=== PATIENT | male | born 1950 | race American Indian/Alaskan Native ===

== ENCOUNTER 2018-06-26 10:36 | Emergency (ER) | payer MEDICARE ==
[2018-06-26] MEDS ORDERED: DILAUDID IV ONE (12:32)
[2018-06-26] MEDS ORDERED: NACL 0.9% 1000 ML 1,000 ML IV ONE (12:32)
[2018-06-26] MEDS ORDERED: ZOFRAN IV ONE (12:32)
--- NOTE | 2018-06-26 12:38 | Emergency Department Report ---
ED Abdominal Pain HPI - General Chief Complaint: Urogenital-Male Stated Complaint: BACK PAIN/PROSTATE/ HARD TO USE RESTROOM Time Seen by Provider: 06/26/18 12:29 Source: patient Mode of arrival: Ambulatory Limitations: No Limitations - History of Present Illness Initial Comments: Patient is 67 years old male with history of hypertension and a recent diagnosis of benign prostatic hypertrophy. Patient presented to the ER complaining of bilateral flank pain, diffuse abdominal pain, nausea and vomiting. Patient stated that symptoms started last night. Patient denied any fever but admitted chills. Patient denied any chest pain or shortness of breath. MD Complaint: abdominal pain, flank pain -: Last night Location: diffuse, suprapubic, L flank Radiation: none Severity scale (0 -10): 6 Quality: sharp Consistency: constant - Related Data Allergies Allergy/AdvReac Type Severity Reaction Status Date / Time No Known Allergies Allergy Unverified 06/26/18 10:42 ED Review of Systems ROS: Stated complaint: BACK PAIN/PROSTATE/ HARD TO USE RESTROOM Other details as noted in HPI Comment: All other systems reviewed and negative Constitutional: chills. denies: fever Respiratory: denies: cough, orthopnea, shortness of breath, SOB with exertion, SOB at rest, wheezing Cardiovascular: denies: chest pain, palpitations, dyspnea on exertion Gastrointestinal: abdominal pain, nausea, vomiting. denies: diarrhea, constipation, hematemesis, melena, hematochezia Genitourinary: urgency, dysuria, frequency. denies: hematuria, discharge, testi cular pain, testicular mass Musculoskeletal: back pain Neurological: denies: headache, weakness, numbness, paresthesias, confusion ED Past Medical Hx - Past Medical History Previous Medical History?: Yes Hx Hypertension: Yes - Surgical History Past Surgical History?: No - Social History Smoking Status: Never Smoker Substance Use Type: None ED Physical Exam - General Limitations: No Limitations General appearance: alert, in no apparent distress - Head Head exam: Present: atraumatic, normocephalic, normal inspection - Eye Eye exam: Present: normal appearance, PERRL - ENT ENT exam: Present: mucous membranes dry - Neck Neck exam: Present: normal inspection, full ROM. Absent: tenderness, meningismus, lymphadenopathy, thyromegaly - Respiratory Respiratory exam: Present: normal lung sounds bilaterally - Cardiovascular Cardiovascular Exam: Present: regular rate, normal rhythm, normal heart sounds - GI/Abdominal GI/Abdominal exam: Present: soft, tenderness (diffuse), normal bowel sounds. Absent: distended, guarding, rebound, rigid - Extremities Exam Extremities exam: Present: normal inspection - Back Exam Back exam: Present: normal inspection, full ROM, CVA tenderness (R), CVA tenderness (L). Absent: tenderness, muscle spasm, paraspinal tenderness, vertebral tenderness - Neurological Exam Neurological exam: Present: alert, oriented X3, CN II-XII intact, normal gait, reflexes normal - Skin Skin exam: Present: warm, intact, normal color ED Course Vital Signs 06/26/18 06/26/18 06/26/18 11:02 13:05 13:09 Temperature 97.8 F Pulse Rate 76 Respiratory 16 16 16 Rate Blood Pressure 179/87 [Left] O2 Sat by Pulse 97 Oximetry ED Medical Decision Making - Lab Data Result diagrams: 06/26/18 12:50 06/26/18 14:44 - Radiology Data Radiology results: report reviewed Referring Physician: ERICA SAMAYOA Patient Name: TAYLOR WALLS Date of : 1950 Sex: Male Report Date: 2018-06-26 Report Status: [place] [address] Cat Scan Report Signed Patient: TAYLOR WALLS MR#: [id number] : 1950 Acct:[id number] Age/Sex: 67 / M ADM Date: 06/26/18 Loc: ED Attending Dr: Ordering Physician: ERICA SAMAYOA Date of Service: 06/26/18 Procedure(s): CT abdomen pelvis w con Accession Number(s): [id number] cc: ERICA SAMAYOA PROCEDURE: CT abdomen and pelvis with contrast. TECHNIQUE: Computerized axial tomography of the abdomen and pelvis was performed after the IV injection of iodinated nonionic contrast. CT DOSE LENGTH PRODUCT: 3931.87 mGycm HISTORY: Abdominal pain. COMPARISONS: None. FINDINGS: The lung bases are clear. There are no pleural effusions. The heart size is normal. The liver, pancreas and spleen appear normal. The gallbladder is present. There is no biliary dilatation. The adrenal glands are not enlarged. Both kidneys appear normal in size and configuration. The abdominal aorta has a normal caliber. There is no retroperitoneal adenopathy. The unopacified gastrointestinal tract is unremarkable. A normal appendix is visible. The bladder is unremarkable. The prostate is severely enlarged. This elevates the base of the bladder. I cannot exclude invasion of the bladder. Referral to a urologist is recommended. There is a small left inguinal canal hernia containing fat. The regional skeleton appears intact. IMPRESSION: Severe enlargement of the prostate. Indeterminant appearance of the bladder base. Referral to a urologist recommended. This document is electronically signed by Kera Faith MD., June 26 2018 05:26:21 PM ET Transcribed By: MRM Dictated By: KERA FAITH MD Electronically Authenticated By: KERA FAITH MD Signed Date/Time: 06/26/18 1728 DD/ 1639 TD/TT: 06/26/18 1643 - Medical Decision Making Patient is 67 years old male with history of hypertension and a recent diagnosis of benign prostatic hypertrophy. Patient presented to the ER complaining of bilateral flank pain, diffuse abdominal pain, nausea and vomiting. Patient stated that symptoms started last night. Patient denied any fever but admitted chills. Patient denied any chest pain or shortness of breath. Patient stated that he is feeling much better. Abdominal pain completely resolved. I discuss with the patient and his family do CT abdomen and pelvis results and the recommendation to follow-up with a urologist in the next 2-3 days. Family stated that patient already have an appointment tomorrow. I will also advise the patient to return to the ER if his symptoms are not improved. Critical care attestation.: If time is entered above; I have spent that time in minutes in the direct care of this critically ill patient, excluding procedure time. ED Disposition Clinical Impression: Abdominal pain, Enlarged prostate Disposition: - TO HOME OR SELFCARE Is pt being admited?: No Condition: Stable Instructions: Abdominal Pain (ED)
[2018-06-26 13:01] LABS: Bilirubin,Urine NEG (Negative); Blood,Urine NEG (Negative); Color,Urine Yellow (Yellow); Hyaline Casts,Urine 1 /LPF; Mucus,Urine FEW /HPF; Protein,Urine <15 mg/dL mg/dL (Negative); Urobilinogen,Urine < 2.0 mg/dL (<2.0); WBC,Urine < 1.0 /HPF (0.0-6.0)
[2018-06-26 13:14] LABS: Hematocrit 36.4 % (35.5-45.6); Hemoglobin 12.1 gm/dl (11.8-15.2); Mean Corpuscular Volume 94 fl (84-94); Red Blood Count 3.89 M/mm3 (3.65-5.03)
[2018-06-26 13:15] LABS: Basophils # (Auto) 0.1 K/mm3 (0.0-0.1); Basophils % (Auto) 1.3 % (0.0-1.8); Eosinophils % (Auto) 0.1 % (0.0-4.3); Lymphocytes # (Auto) 0.7 K/mm3 (1.2-5.4); Lymphocytes % (Auto) 6.9 % (13.4-35.0); Mean Corpuscular HGB Conc 33 % (32-34); Monocytes # (Auto) 0.5 K/mm3 (0.0-0.8); Monocytes % (Auto) 4.7 % (0.0-7.3); Platelet Count 322 K/mm3 (140-440)
[2018-06-26 14:00] LABS: Blood Urea Nitrogen TNR mg/dL (9-20)
[2018-06-26 14:01] LABS: BUN/Creatinine Ratio TNR; Bilirubin,Direct TNR mg/dL (0-0.2); Calcium TNR mg/dL (8.4-10.2)
[2018-06-26 14:02] LABS: Alanine Aminotransferase TNR units/L (7-56); Albumin TNR g/dL (3.9-5); Hemolysis Index TNR
[2018-06-26 15:16] LABS: Alanine Aminotransferase 43 units/L (7-56); Albumin 3.5 g/dL (3.9-5); BUN/Creatinine Ratio 12; Blood Urea Nitrogen 11 mg/dL (9-20); Calcium 9.3 mg/dL (8.4-10.2); Hemolysis Index 28
[2018-06-26 15:29] LABS: Bilirubin,Direct < 0.2 mg/dL (0-0.2)
--- NOTE | 2018-06-26 17:28 | Cat Scan Report ---
PROCEDURE: CT abdomen and pelvis with contrast. TECHNIQUE: Computerized axial tomography of the abdomen and pelvis was performed after the IV inject ion of iodinated nonionic contrast. CT DOSE LENGTH PRODUCT: 3931.87 mGycm HISTORY: Abdominal pain. COMPARISONS: None. FINDINGS: The lung bases are clear. There are no pleural effusions. The heart size is normal. The liver, pancre as and spleen appear normal. The gallbladder is present. There is no biliary dilatation. The adrenal glands are not enlarged. Both kidneys appear normal in size and configuration. The abdominal aorta schneider s a normal caliber. There is no retroperitoneal adenopathy. The unopacified gastrointestinal tract is unremarkable. A normal appendix is visible. The bladder is unremarkable. The prostate is severely en larged. This elevates the base of the bladder. I cannot exclude invasion of the bladder. Referral to a urologist is recommended. There is a small left inguinal canal hernia containing fat. The regional skeleton appears intact. IMPRESSION: Severe enlargement of the prostate. Indeterminant appearance of the bladder base. Referr al to a urologist recommended. This document is electronically signed by Tiago Da Silva MD., June 26 2018 05:26:21 PM ET
[2018-06-26 18:46] VITALS: BP 156/89
== END 2018-06-26 18:46 | disposition home or self-care (01) ==
LOC: ED 10:36
DX: N40.0 Benign prostatic hyperplasia without lower urinary tract symptoms (principal); I10 Essential (primary) hypertension
CPT/HCPCS: 36415; 74177; 80048; 80076; 81001; 83690; 85025; 96361; 96374; 96375; 99284; J1170; J2405; J7030; Q9967